=== PATIENT | female | born 1970 | race Caucasian/White ===

== ENCOUNTER 2021-08-10 11:25 | Emergency (ER) | payer BC, SELFPAY ==
--- NOTE | ~2021-08-10 | CT_ITS ---
CT ANGIOGRAM NECK WITH CONTRAST CT ANGIOGRAM BRAIN WITH CONTRAST CLINICAL INFORMATION: Severe headache. COMPARISON: None available. TECHNIQUE: Test bolus sequences followed by intravenous administration 70 mL of Omnipaque 350. Helical imaging was performed in the axial plane from the thoracic inlet to the skull vertex. Delayed postcontrast imaging of the head was also performed. The data was processed at the mri technologist workstation for generation of MIP sequences. Angled MIPs and volume rendered reformatted images were also generated at an offline 3D workstation under concurrent supervision. Stenoses are assessed in accordance with NASCET criteria unless otherwise indicated. This CT examination was performed using dose optimization techniques as appropriate, variously including the following: *Automated exposure control *Adjustment of mA and/or kV according to patient size (this includes techniques or standardized protocols for targeted exams where dose is matched to indication/reason for exam; i.e. extremities or head) *Use of iterative reconstruction technique FINDINGS: BRAIN: [There is no intracranial hemorrhage, hydrocephalus, extra-axial surface collection, midline shift, or other herniation pattern. Simmons to white matter differentiation is diffusely maintained without evidence of an evolved acute territorial infarct. The basilar cisterns are preserved. No significant soft tissue abnormality. No acute osseous abnormality. The paranasal sinuses and the mastoid air cells are well aerated.] CERVICAL SOFT TISSUES AND LUNG APICES: Imaged upper lungs are clear. There is a 1.7 cm nodule within the right thyroid lobe that should be further assessed with thyroid ultrasound. Elongated styloid processes bilaterally that can be correlated for clinical signs of [place] syndrome. There is multilevel cervical spondylosis. ACDF changes at the C4-C7 levels. NECK CTA: [There is a classic 3 vessel configuration of the aortic arch. Proximal arch vessels are non-stenotic. Right vertebral artery is dominant. No significant ostial stenosis is visualized on either side. Both vertebral arteries are widely patent throughout their extracranial cervical course. Both common and internal carotid arteries are normal in course and caliber.] BRAIN CTA: There are a few severe segmental stenoses involving the anterior cerebral arteries bilaterally at the level of the anterior body/genu of the corpus callosum. This finding is nonspecific however given the history of headaches, RCVS (reversible cerebral vasoconstriction syndrome) can have this appearance. There is no acute intracranial hemorrhage. No focal flow-limiting stenosis nor discrete proximal large artery occlusion. No aneurysm. Timing of the contrast bolus allows assessment of the major dural venous sinuses, which all opacify normally] CT/CT angio head neck IMPRESSION: - No acute intracranial findings. - There are a few severe segmental stenoses involving the anterior cerebral arteries bilaterally at the level of the anterior body/genu of the corpus callosum. This finding is nonspecific however given the history of headaches, RCVS (reversible cerebral vasoconstriction syndrome) can have this appearance. There is no acute intracranial hemorrhage. - Elongated styloid processes bilaterally that can be correlated for clinical signs of [place] syndrome. - There is multilevel cervical spondylosis. ACDF changes at the C4-C7 levels. - There is a 1.7 cm nodule within the right thyroid lobe that should be further assessed with thyroid ultrasound.
[2021-08-10 11:33] VITALS: BP 118/82; PULSE 100; RESP 19; TEMP 36.9; O2SAT 96; BMI 25.0
--- NOTE | 2021-08-10 11:37 | ED_ITS ---
HPI - Headache General Chief Complaint: Headache Stated Complaint: headaches Time Seen by Provider: 08/10/21 11:29 Source: patient Mode of arrival: ambulatory Limitations: no limitations History of Present Illness HPI Narrative: 51 yo female no PMH no ac therapy no aspirin use reports on 08/04 she was having intercourse with her and afterwards developed severe headache that eventually somewhat subsided over the past several days until it returned and became much worse this AM 8/10. She reports it returned at 2am and she was just sleeping. She has never had headaches and never experience this during int ercourse. She denies head trauma. She reports feeling intermittent tingling in L forearm at times but not right now. She is not aware of any family hx of aneurysms and she herself has not been dx with HTN. She only smokes cigarettes and does not use cocaine. MD elicited complaint: headache Onset (ago): day(s) (08/04 returned 2am today) Onset description: suddenly, like a thunderclap and during intercourse Location: band-like Severity: severe Quality & Timing: sharp and first headache Exacerbating factors: none Relieving factors: prescription medication (did try advil at one point but not t benja) Context: occurred during intercourse Associated symptoms: numbness (intermittent L arm tingling) Treatments prior to arrival: none Related Data Previous Rx's Medication Instructions Recorded cyclobenzaprine 10 mg tablet 10 mg PO TID PRN #14 tab 08/10/21 hydrocodone 5 mg-acetaminophen 325 1 tab PO Q6H PRN #12 tab 08/10/21 mg tablet ibuprofen 600 mg tablet 600 mg PO Q6H PRN #30 tab 08/10/21 ondansetron 4 mg disintegrating 4 mg PO Q8H PRN #20 tab 08/10/21 tablet Allergies Allergy/AdvReac Type Severity Reaction Status Date / Time No Known Allergies Allergy Unverified 02/05/20 17:35 [No Known Allergies*] Review of Systems Review of Systems: Constitutional : No Fever, No Chills, No Fatigue ENT/Mouth : No sore throat, No Rhinorrhea Eyes: No Eye Pain, No Swelling, No Redness Cardiovascular : No Chest Pain, No SOB, No Dyspnea on Exertion Respiratory : No Cough, No Sputum Gastrointestinal : No Nausea, No Vomiting, No Diarrhea, No abdominal Pain Genitourinary : No Dysuria, No Urinary Frequency, No Hematuria, Musculoskeletal : No joint pain, No Myalgias, No Joint Swelling Skin : No Skin Lesions, No rash Neuro : No Weakness, pos Numbness, No Dizziness, positive Headache Psych : No Anxiety/Panic, No Depression Heme/Lymph: No Bruising, No Bleeding,No Lymphadenopathy Endocrine : No Polyuria, No Polydipsia All other systems reviewed and are negative [facility] [place] Past Medical History Attestation statement: The following information was validated with the patient. Medical History No pertinent past medical history Social History Social History (Updated 08/10/21 @ 11:38 by Daniella Bragg DO) Patient Tobacco Use Status: Current someday Tobacco user Use of substances other than those prescribed or required for medical reasons: No Advance Directives: No Advance Directives Information Provided: Yes Physical Exam Vital Signs: Vital Signs: Last Vital Signs Temp 98.4 F 08/10/21 11:33 Pulse 74 08/10/21 13:33 Resp 18 08/10/21 13:33 BP 105/64 08/10/21 13:33 Pulse Ox 99 08/10/21 13:33 BMI result Body Mass Index 25.0 Appearance: Alert. Oriented X3. No acute distress. Eyes: Pupils equal, round and reactive to light. ENT: Pharynx normal. Neck: Normal inspection. Neck supple. CVS: Normal heart rate and rhythm. Pulses normal. Respiratory: No respiratory distress. Breath sounds normal. Abdomen: Soft and non-tender. Skin: Skin warm and dry. Normal skin color. Normal skin turgor. Extremities: No lower extremity edema. No calf ttp Neuro: Oriented X 3. No motor deficit. No sensory deficit. Steady gait Course Course Course Narrative: message sent to Neurology given CTA read. Neurology aware will need to follow up outpatient. At this time her headache resolved and her symptoms correlate with RCVS she has no neurologic deficits but I do believe she has RCVS. Will refer to her PCP and Neurologist as well as discussing things to avoid. Will need to hold any CCB as her BP runs low MDM - Headache MDM Narrative Medical decision making narrative: 51 yo female with no PMH no DOAC or ASA use comes in after severe headache during intercourse on 08/04 that somewhat subsided but returned again today while sleeping 2am. She has no known history or substance abuse. Her BP is normal and under 140. At this time concern for possible SAH or aneurysm that may have caused symptoms and pain today is associated with spasm. Will obtain labs, coags, COVID swab, CT head/CTA/head and neck. Monitor BP. 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 IV morphine for pain at this time. Lab Data Result diagrams: 08/10/21 11:49 08/10/21 11:49 Labs: Lab Results 08/10/21 08/10/21 08/10/21 Range/Units 11:49 11:49 11:49 WBC 9.7 (4.8-10.8) X10*3/uL RBC 5.01 (4.20-5.50) X10*6/uL Hgb 15.2 (12.0-16.0) g/dl Hct 46.8 (37.0-47.0) % MCV 93.4 (80.0-98.0) fL MCH 30.3 (27.0-33.0) pg MCHC 32.5 (31.0-35.0) g/dl RDW 12.9 (11.0-16.0) % Plt Count 278 (160-400) X10*3/uL MPV 8.1 L (9.4-12.3) fL Immature Gran % (Auto) 0.3 (0.0-0.4) % Neut % (Auto) 63.3 (45-73) % Lymph % (Auto) 29.7 (20-40) % [place] % (Auto) 5.3 (2-11) % Eos % (Auto) 1.0 (0-4) % Baso % (Auto) 0.4 (0-2) % Lymph # (Auto) 2.9 (1.2-4.9) X10*3/uL [place] # (Auto) 0.5 (0.1-1.2) X10*3/uL Eos # (Auto) 0.1 (0.0-0.4) X10*3/uL Baso # (Auto) 0.0 (0.0-0.2) X10*3/uL Abs Immat Gran (auto) 0.03 (0.00-0.03) X10*3/uL Absolute Neuts (auto) 6.1 (2.0-8.3) x10*3/uL Absolute Nucleated RBC 0.000 (0.0-0.012) X10*3/uL Nucleated RBC % (auto) 0.0 (0.0-0.2) /100WBC PT (9.9-13.0) SEC INR (0.9-1.1) APTT (24.1-38.0) SEC Sodium 138 (135-145) mmol/L Potassium 4.7 (3.3-5.1) mmol/L Chloride 105 (96-108) mmol/L Carbon Dioxide 25 (22-29) mmol/L Anion Gap 13 (12-20) BUN 9 (9-16) mg/dL Creatinine 0.73 (0.5-1.4) mg/dL Estim Creat Clear Calc 80.7 Estimated GFR > 60 Random Glucose 94 (60-115) mg/dL Calcium 9.9 (8.4-10.2) mg/dL Magnesium 2.0 (1.6-2.6) mg/dL Total Bilirubin 0.7 (0.0-1.0) mg/dL Direct Bilirubin 0.2 (0.0-0.5) mg/dL AST 18 (5-31) U/L ALT 17 (0-31) U/L Alkaline Phosphatase 60 (39-117) U/L Total Protein 7.3 (6.5-8.0) g/dL Albumin 4.4 (3.5-5.0) g/dL COVID-19 (SHAHID) Negative (Negative) COVID-19 Clin Com See Note 08/10/21 Range/Units 11:49 WBC (4.8-10.8) X10*3/uL RBC (4.20-5.50) X10*6/uL Hgb (12.0-16.0) g/dl Hct (37.0-47.0) % MCV (80.0-98.0) fL MCH (27.0-33.0) pg MCHC (31.0-35.0) g/dl RDW (11.0-16.0) % Plt Count (160-400) X10*3/uL MPV (9.4-12.3) fL Immature Gran % (Auto) (0.0-0.4) % Neut % (Auto) (45-73) % Lymph % (Auto) (20-40) % [place] % (Auto) (2-11) % Eos % (Auto) (0-4) % Baso % (Auto) (0-2) % Lymph # (Auto) (1.2-4.9) X10*3/uL [place] # (Auto) (0.1-1.2) X10*3/uL Eos # (Auto) (0.0-0.4) X10*3/uL Baso # (Auto) (0.0-0.2) X10*3/uL Abs Immat Gran (auto) (0.00-0.03) X10*3/uL Absolute Neuts (auto) (2.0-8.3) x10*3/uL Absolute Nucleated RBC (0.0-0.012) X10*3/uL Nucleated RBC % (auto) (0.0-0.2) /100WBC PT 11.6 (9.9-13.0) SEC INR 1.0 (0.9-1.1) APTT 32.7 (24.1-38.0) SEC Sodium (135-145) mmol/L Potassium (3.3-5.1) mmol/L Chloride (96-108) mmol/L Carbon Dioxide (22-29) mmol/L Anion Gap (12-20) BUN (9-16) mg/dL Creatinine (0.5-1.4) mg/dL Estim Creat Clear Calc Estimated GFR Random Glucose (60-115) mg/dL Calcium (8.4-10.2) mg/dL Magnesium (1.6-2.6) mg/dL Total Bilirubin (0.0-1.0) mg/dL Direct Bilirubin (0.0-0.5) mg/dL AST (5-31) U/L ALT (0-31) U/L Alkaline Phosphatase (39-117) U/L Total Protein (6.5-8.0) g/dL Albumin (3.5-5.0) g/dL COVID-19 (SHAHID) (Negative) COVID-19 Clin Com Discharge Plan Discharge Clinical Impression: Acute headache Patient Disposition: Home, Self-Care Instructions: Acute Headache (ED) Additional Instructions: return to ED for any worsening symptoms or concerns your CTA of your head showed something called RCVS (Reversible cerebral vasoconstriction syndrome) there is no treatment or cure for this other than monitoring BP (yours has been great today) and pain control. Your headache may last another week. YOU ARE NOT ALLOWED TO TAKE any form of a TRIPTAN for your headaches EVER. - No acute intracranial findings. ? - There are a few severe segmental stenoses involving the anterior cerebral arteries bilaterally at the level of the anterior body/genu of the corpus callosum. This finding is nonspecific however given the history of headaches, RCVS (reversible cerebral vasoconstriction syndrome) can have this appearance. There is no acute intracranial hemorrhage. ? - Elongated styloid processes bilaterally that can be correlated for clinical signs of [place] syndrome. ? - There is multilevel cervical spondylosis. ACDF changes at the C4-C7 levels. ? - There is a 1.7 cm nodule within the right thyroid lobe that should be further assessed with thyroid ultrasound. THIS NEEDS FOLLOW UP WITH YOUR DOCTOR Prescriptions: New cyclobenzaprine 10 mg tablet 10 mg PO TID PRN (Reason: muscle spasm) Qty: 14 0RF hydrocodone-acetaminophen 5-325 mg tablet 1 tab PO Q6H PRN (Reason: pain) Qty: 12 0RF ibuprofen 600 mg tablet 600 mg PO Q6H PRN (Reason: pain) Qty: 30 0RF ondansetron 4 mg tablet,disintegrating 4 mg PO Q8H PRN (Reason: nausea and vomiting) Qty: 20 0RF Referrals: Audra Wharton MD [Physician] - 1 week Stand Alone Forms: Work/School Release
[2021-08-10 11:39] VITALS: BP 133/79; PULSE 92; RESP 18; O2SAT 99
[2021-08-10 11:40] VITALS: BP 116/75; PULSE 96
[2021-08-10 11:54] LABS: MANUAL DIFF FLAG NO
[2021-08-10 11:58] LABS: Basophils Percent Auto 0.4 % (0-2); Eosinophils Absolute Auto 0.1 X10*3/uL (0.0-0.4); Hematocrit 46.8 % (37.0-47.0); Hemoglobin 15.2 g/dl (12.0-16.0); Imm Gran Abs Auto 0.03 X10*3/uL (0.00-0.03); Imm Gran Pct Auto 0.3 % (0.0-0.4); Lymphocytes Absolute Auto 2.9 X10*3/uL (1.2-4.9); Lymphocytes Percent Auto 29.7 % (20-40); Mean Corpuscular HGB Conc 32.5 g/dl (31.0-35.0); Mean Corpuscular Hemoglobin 30.3 pg (27.0-33.0); Mean Corpuscular Volume 93.4 fL (80.0-98.0); Mean Platelet Volume 8.1 fL (9.4-12.3); Monocytes Absolute Auto 0.5 X10*3/uL (0.1-1.2); Monocytes Percent Auto 5.3 % (2-11); Neutrophils Absolute Auto 6.1 x10*3/uL (2.0-8.3); Neutrophils Percent Auto 63.3 % (45-73); Platelet Count 278 X10*3/uL (160-400); Red Blood Count 5.01 X10*6/uL (4.20-5.50); Red Cell Distribution Width 12.9 % (11.0-16.0); White Blood Count 9.7 X10*3/uL (4.8-10.8)
[2021-08-10 12:04] LABS: Prothrombin Time 11.6 SEC (9.9-13.0)
[2021-08-10 12:06] LABS: Partial Thromboplastin Time 32.7 SEC (24.1-38.0)
[2021-08-10 12:10] LABS: COVID-19 Test Negative (Negative)
[2021-08-10] MEDS: 0.9 % Sodium Chloride 500 ML IV (12:17)
[2021-08-10] MEDS: ondansetron HCL 4 MG/2 ML VIAL IVPUSH (12:17)
[2021-08-10] MEDS: Morphine Sulfate 4 MG/ML CARTRIDGE IVPUSH (12:17)
[2021-08-10 12:20] LABS: Alanine Aminotransferase 17 U/L (0-31); Albumin Level 4.4 g/dL (3.5-5.0); Alkaline Phosphatase 60 U/L (39-117); Anion Gap 13 (12-20); Aspartate Amino Transferase 18 U/L (5-31); Bilirubin Direct 0.2 mg/dL (0.0-0.5); Bilirubin Total 0.7 mg/dL (0.0-1.0); Blood Urea Nitrogen 9 mg/dL (9-16); Calcium 9.9 mg/dL (8.4-10.2); Carbon Dioxide 25 mmol/L (22-29); Chloride 105 mmol/L (96-108); Creatinine Clr Calc Pharmacy 80.7; Estimated Glomerular Filt Rate > 60; Glucose Random 94 mg/dL (60-115); Potassium 4.7 mmol/L (3.3-5.1); Sodium 138 mmol/L (135-145); Total Protein 7.3 g/dL (6.5-8.0)
--- NOTE | 2021-08-10 12:21 | PC.NURSE ---
pt reports a headache since last mostly frontal after having intercourse with her , mostly located in the frontl/mid area, no hx of headaches, headaches come and go with some nausea, denies light/noise sensitivity all nuero intact at this time, vs stable
[2021-08-10] MEDS: iohexoL 350 MG/ML 75 ML INFUS..BTL 70 ML IV (12:41)
[2021-08-10 13:33] VITALS: BP 105/64; PULSE 74; RESP 18; O2SAT 99
--- NOTE | 2021-08-10 13:34 | PC.NURSE ---
pt reports that her headache is gone after the morphine
== END 2021-08-10 15:27 | disposition home or self-care (01) ==
PROVIDERS: Emergency Provider Emergency Medicine; PCP Internal Medicine
DX: R51.9 Headache, unspecified (principal); M79.602 Pain in left arm; M54.2 Cervicalgia; F17.200 Nicotine dependence, unspecified, uncomplicated; Z71.6 Tobacco abuse counseling; Z20.822 Contact with and (suspected) exposure to COVID-19; Z79.899 Other long term (current) drug therapy
CPT/HCPCS: 36415; 70496; 70498; 80048; 80076; 83735; 85025; 85610; 85730; 87635; 96361; 96374; 96375; 99284; J2270; J2405; Q9967